=== PATIENT | female | born 1995 | race Hispanic/Latino ===

== ENCOUNTER 2016-12-13 04:47 | Observation (INO) | payer BC ==
--- NOTE | 2016-12-13 05:18 | ED PDOC ---
Arrival/HPI - General Historian: Patient - History of Present Illness Time/Duration: 4-6 hours Symptom Onset: Sudden Symptom Course: Unchanged Quality: Other (sharp) Severity Level: 8 Activities at Onset: Rest Context: Sitting <Wayne Alvarado - Last Filed: 12/13/16 07:00> <Shelley Etienne - Last Filed: 12/13/16 07:26> - General Chief Complaint: Abdominal Pain Time Seen by Provider: 12/13/16 05:08 - History of Present Illness Narrative History of Present Illness (Text): 12/13/16 05:18 This is a 21 yr. old female with no pertinent past medical history who comes to [facility] complaining of diffuse abdominal pain since 10 p.m. last night. She describes the pain as sharp in nature and it coming in waves. The patient reports taking Pepto Bismol earlier in the day with no relief. The patient reports one episode of non-bloody, non bilious vomit in conjunction with the abdominal pain. She denies any fevers, chills, constipation, diarrhea, chest pain, shortness of breath, or any other complaints. 12/13/16 06:57 (Wayne Alvarado) Past Medical History - Provider Review Nursing Documentation Reviewed: Yes - Travel History Have you recently traveled outside [place] w/in the past 3 mons?: No - Infectious Disease Hx of Infectious Diseases: None - Tetanus Immunization Tetanus Immunization: Unknown - Past Medical History Past Medical History: No Previous - Musculoskeletal/Rheumatological Hx Falls: No Other/Comment: Scoliosis - Psychiatric Hx Substance Use: No - Past Surgical History Past Surgical History: No Previous - Suicidal Assessment Feels Threatened In Home Enviroment: No <Wayne Alvarado - Last Filed: 12/13/16 07:00> Family/Social History - Physician Review Nursing Documentation Reviewed: Yes Family/Social History: No Known Family HX Smoking Status: Never Smoked Hx Alcohol Use: No Hx Substance Use: No Hx Substance Use Treatment: No <Wayne Alvarado - Last Filed: 12/13/16 07:00> Allergies/Home Meds <Wayne Alvarado - Last Filed: 12/13/16 07:00> <Shelley Etienne - Last Filed: 12/13/16 07:26> Allergies/Adverse Reactions: Allergies Penicillins Allergy (Verified 12/13/16 05:07) ANAPHYLAXIS Sulfa (Sulfonamide Antibiotics) Allergy (Verified 12/13/16 05:08) VOMITING Home Medications: Home Meds Medication Instructions Recorded Confirmed No Known Home Med 12/13/16 12/13/16 Review of Systems - Physician Review All systems were reviewed & negative as marked: Yes - Review of Systems Constitutional: Normal. absent: Fevers, Night Sweats Eyes: Normal. absent: Vision Changes, Eye Pain ENT: Normal. absent: Sore Throat, Rhinorrhea, Sinus Congestion Respiratory: Normal. absent: Sputum, Wheezing Cardiovascular: Normal. absent: Chest Pain, Syncope Gastrointestinal: Abdominal Pain (diffuse abdominal pain), Vomiting (one episdoe of non-bloody, non-billious emesis). absent: Normal, Constipation, Diarrhea Genitourinary Female: Normal. absent: Frequency, Hematuria Musculoskeletal: Normal. absent: Back Pain Skin: Normal. absent: Skin Lesions, Abscess Neurological: Normal. absent: Headache, Dizziness Endocrine: Normal. absent: Polyuria, Polydipsia Hemo/Lymphatic: Normal. absent: Easy Bleeding, Easy Bruising <Wayne Alvarado - Last Filed: 12/13/16 07:00> Physical Exam Vital Signs Reviewed: Yes Temperature: Afebrile Blood Pressure: Hypertensive Pulse: Tachycardic Respiratory Rate: Normal Appearance: Positive for: Well-Appearing, Non-Toxic, Uncomfortable Pain Distress: Moderate Mental Status: Positive for: Alert and Oriented X 3 - Systems Exam Head: Present: Atraumatic, Normocephalic Pupils: Present: PERRL. No: Non-Reactive Extroacular Muscles: Present: EOMI. No: Gaze Palsy Conjunctiva: Present: Normal. No: Injected Mouth: Present: Moist Mucous Membranes, Normal Tounge. No: Drooling Neck: Present: Normal Range of Motion. No: JVD, Lymphadenopathy Respiratory/Chest: Present: Clear to Auscultation, Good Air Exchange. No: Respiratory Distress, Accessory Muscle Use, Wheezes Cardiovascular: Present: Regular Rate and Rhythm, Normal S1, S2. No: Murmurs, Tachycardic Abdomen: Present: Tenderness (slight tenderness noted in all four quadrants), Normal Bowel Sounds. No: Distention, Rebound, Guarding Upper Extremity: Present: Normal Inspection. No: Cyanosis, Edema Lower Extremity: Present: Normal Inspection. No: Edema Neurological: Present: CN II-XII Intact, Speech Normal Skin: Present: Dry, Normal Color. No: Warm, Rashes Lymphatic: No: Cervical Adenopathy Psychiatric: Present: Alert, Oriented x 3, Normal Insight, Normal Concentration <Wayne Alvarado - Last Filed: 12/13/16 07:00> Medical Decision Making <Wayne Alvarado - Last Filed: 12/13/16 07:00> - Lab Interpretations I have reviewed the lab results: Yes <Shelley Etienne - Last Filed: 12/13/16 07:26> ED Course and Treatment: 12/13/16 05:24 This is a 21 yr. female who comes to [facility] complaining of diffuse abdominal pain. I ordered cbc w/diff, cmp, ab and pelvis ct with iv and po contrast, u/a. Patient was given Toradol, Pepcid, IV fluids and Zofran. Patient will be re-evaluated after lab results return. 12/13/16 06:55 (Wayne Alvarado) 12/13/16 05:46 In agreement with resident note, which includes further HPI details. Patient was seen and evaluated with resident, came up with plan and treatment together. 12/13/16 07:25 Patient with noted history of abd pain and previous abx-treated appendicitis; awaiting CT result; case endorsed to Dr. Cabrera. (Shelley Etienne) - Lab Interpretations Lab Results: 12/13/16 05:30 12/13/16 05:30 Lab Results 12/13/16 06:45: Urine Color Yellow, Urine Appearance Clear, Urine pH 6.5, Ur Specific [place] 1.020, Urine Protein Negative, Urine Glucose (UA) Negative, Urine Ketones 15 H, Urine Blood Negative, Urine Nitrate Negative, Urine Bilirubin Negative, Urine Urobilinogen 0.2, Ur Leukocyte Esterase Negative 12/13/16 05:30: Sodium 140, Potassium 3.9, Chloride 103, Carbon Dioxide 25, Anion Gap 16, BUN 12, Creatinine 0.6, Est GFR ( Amer) > 60, Est GFR (Non- Af Amer) > 60, Random Glucose 88, Calcium 9.5, Total Bilirubin 0.7, AST 24, ALT 36, Alkaline Phosphatase 75, Total Protein 7.6, Albumin 4.4, Globulin 3.2, Albumin/Globulin Ratio 1.3, Lipase 41 12/13/16 05:30: WBC 10.7 D, RBC 4.08, Hgb 12.7, Hct 38.6, MCV 94.6, MCH 31.1, MCHC 32.9, RDW 12.3, Plt Count 201, MPV 11.6 H, Gran % 69.9 H, Lymph % (Auto) 21.1 L, [place] % (Auto) 7.5 H, Eos % (Auto) 1.2 L, Baso % (Auto) 0.3, Gran # 7.51 H, Lymph # 2.3, [place] # 0.8 H, Eos # 0.1, Baso # 0.03 - RAD Interpretation Radiology Orders: 12/13/16 05:26 ABDOMEN & PELVIS [ABD PELVIS PO & IV CONTRAST] [CT] Stat - Medication Orders Current Medication Orders: Discontinued Medications Famotidine (Pepcid) 20 mg IVP STAT STA Stop: 12/13/16 05:40 Last Admin: 12/13/16 05:52 Dose: 20 mg Sodium Chloride (Sodium Chloride 0.9%) 1,000 mls @ 999 mls/hr IV .Q1H1M STA Stop: 12/13/16 06:38 Last Admin: 12/13/16 05:51 Dose: 999 mls/hr Iohexol (Omnipaque 240 (50 Ml)) Confirm Administered Dose 50 ml .ROUTE .STK-MED ONE Stop: 12/13/16 05:37 Iohexol (Omnipaque 350 100 Ml) Confirm Administered Dose 350 mg .ROUTE .STK-MED ONE Stop: 12/13/16 06:34 Ketorolac Tromethamine (Toradol) 30 mg IVP STAT STA Stop: 12/13/16 05:39 Last Admin: 12/13/16 05:51 Dose: 30 mg Ondansetron HCl (Zofran Inj) 4 mg IVP STAT STA Stop: 12/13/16 05:40 Last Admin: 12/13/16 05:51 Dose: 4 mg <Wayne Alvarado - Last Filed: 12/13/16 07:00> - PA / GAS DESULFURIZER / Resident Statement SCOTT has reviewed & agrees with the documentation as recorded. MD/DO has examined the patient and agrees with the treatment plan. - Scribe Statement The provider has reviewed the documentation as recorded by the Scribe <Shelley Etienne - Last Filed: 12/13/16 07:26> - Scribe Statement 12/13/2016 Idalia Sandhu Provider Scribe Attestation: All medical record entries made by the Scribe were at my direction and personally dictated by me. I have reviewed the chart and agree that the record accurately reflects my personal performance of the history, physical exam, medical decision making, and the department course for this patient. I have also personally directed, reviewed, and agree with the discharge instructions and disposition. (Shelley Etienne) Disposition/Present on Arrival - Present on Arrival Any Indicators Present on Arrival: Yes History of DVT/PE: No History of Uncontrolled Diabetes: No Urinary Catheter: No History of Decub. Ulcer: No History Surgical Site Infection Following: None - Disposition Have Diagnosis and Disposition been Completed?: No Disposition Time: 07:01 Patient Plan: Other (Sign out to another physician) <Wayne Alvarado - Last Filed: 12/13/16 07:00> <Shelley Etienne - Last Filed: 12/13/16 07:26> - Disposition Diagnosis: Abdominal pain Patient Problems: Current Active Problems Problem Status Onset Abdominal pain Acute Condition: FAIR Referrals: PCP,NO [Primary Care Provider] - Follow up with primary Forms: [employer] ([place])
[2016-12-13] MEDS ORDERED: Iohexol 240 (50 ml) ONE (05:36)
[2016-12-13] MEDS ORDERED: Sodium Chloride 0.9% 1,000 ML IV STA (05:38)
[2016-12-13 05:53] LABS: BASO # 0.03 K/mm3 (0.0-2.0); BASO % 0.3 % (0.0-3.0); EOS # 0.1 (0.0-0.7); EOS % 1.2 % (1.5-5.0); GRAN # 7.51 (1.4-6.5); GRAN % 69.9 % (50.0-68.0); HEMATOCRIT 38.6 % (36.0-48.0); LYMPH # 2.3 (1.2-3.4); LYMPH % 21.1 % (22.0-35.0); MEAN CELL VOLUME 94.6 fl (80.0-105.0); MEAN CORPUSCULAR HEMOGLOBIN 31.1 pg (25.0-35.0); MEAN CORPUSCULAR HGB CONC 32.9 g/dl (31.0-37.0); MEAN PLATELET VOLUME 11.6 fl (7.0-11.0); MONO # 0.8 (0.1-0.6); MONO % 7.5 % (1.0-6.0); RED CELL DISTRIBUTION WIDTH 12.3 % (11.5-14.5); WHITE BLOOD COUNT 10.7 10^3/ul (4.5-11.0)
[2016-12-13 05:57] LABS: ALB/GLOB RATIO 1.3 (1.1-1.8); ALKALINE PHOSPHATASE 75 U/L (38-133); ALT/SGPT 36 U/L (7-56); AST/SGOT 24 U/L (15-39); BILIRUBIN,TOTAL 0.7 mg/dL (0.2-1.3); BLOOD UREA NITROGEN 12 mg/dL (7-21); CALCIUM 9.5 mg/dL (8.4-10.5); CARBON DIOXIDE 25 mmol/L (21-33); CHLORIDE 103 mmol/L (95-110); GFR AFRICAN-AMERICAN > 60; GLUCOSE,RANDOM 88 mg/dL (70-110); LIPASE 41 U/L (23-300); POTASSIUM 3.9 mmol/L (3.6-5.0); SODIUM 140 mmol/L (132-148); TOTAL PROTEIN 7.6 g/dL (5.8-8.3)
[2016-12-13] MEDS ORDERED: Iohexol 350 MG/100 ML VIAL ONE (06:33)
--- NOTE | 2016-12-13 07:11 | ED PDOC ---
Physical Exam Vital Signs Reviewed: Yes Vital Signs Temp Pulse Resp BP Pulse Ox 12/13/16 09:14 83 18 120/63 96 12/13/16 07:31 97.9 F 69 16 125/75 97 12/13/16 05:04 98.3 F 92 H 18 140/96 H 100 Temperature: Afebrile Blood Pressure: Hypertensive Pulse: Regular Respiratory Rate: Normal Appearance: Positive for: Well-Appearing Pain Distress: Mild Mental Status: Positive for: Alert and Oriented X 3 Medical Decision Making ED Course and Treatment: 12/13/16 07:00 Patient signed out to me by Dr. Etienne. Patient complaining of Abdominal pain, pending CT results and disposition. Patient appears comfortable and is in no distress. Abdomen is soft and non- tender. 12/13/16 09:27 CT Abdomen and Pelvis with contrast: Dictator : Francisco Leonard MD FINDINGS: LOWER THORAX:Unremarkable. LIVER:Unremarkable. No gross lesion or ductal dilatation. GALLBLADDER AND BILE DUCTS:Unremarkable. PANCREAS:Unremarkable. No gross lesion or ductal dilatation. SPLEEN:Unremarkable. ADRENALS:Unremarkable. No mass. KIDNEYS AND URETERS:Unremarkable. No hydronephrosis. No solid mass. VASCULATURE:Unremarkable. No aortic aneurysm. BOWEL:Unremarkable. No obstruction. No gross mural thickening. APPENDIX:The appendix is difficult to visualize due to lack of abdominal fat. Oral contrast does not reach the cecum. There is also himf-ij-muppqkts constipation. There are no secondary signs of appendicitis. PERITONEUM:There is a small amount of free fluid in the pelvis and the right pericolic gutter. LYMPH NODES:Unremarkable. No enlarged lymph nodes. BLADDER:Unremarkable. REPRODUCTIVE:There is a thick-walled collapsed cyst in the right ovary consistent with recent cyst rupture BONES:No acute fracture. OTHER FINDINGS:None. IMPRESSION: The appendix is difficult to visualize due to lack of abdominal fat. Oral contrast does not reach the cecum. There is also cbaw-aa-rjyfuboc constipation. There are no secondary signs of appendicitis. Thick-walled collapsed cyst in the right ovary and fluid in the pelvis and right pericolic gutter consistent with recent cyst rupture 12/13/16 09:33 pt states she is still in pain, does not feel comfortable being dc'd home states she has no PMD hospitalist paged, awaiting callback 12/13/16 09:[address] Carey, accepted obs to his service pt aware of and agrees with plan - Lab Interpretations Lab Results: 12/13/16 05:30 12/13/16 05:30 Lab Results 12/13/16 06:45: Urine Color Yellow, Urine Appearance Clear, Urine pH 6.5, Ur Specific [place] 1.020, Urine Protein Negative, Urine Glucose (UA) Negative, Urine Ketones 15 H, Urine Blood Negative, Urine Nitrate Negative, Urine Bilirubin Negative, Urine Urobilinogen 0.2, Ur Leukocyte Esterase Negative 12/13/16 05:30: Sodium 140, Potassium 3.9, Chloride 103, Carbon Dioxide 25, Anion Gap 16, BUN 12, Creatinine 0.6, Est GFR ( Amer) > 60, Est GFR (Non- Af Amer) > 60, Random Glucose 88, Calcium 9.5, Total Bilirubin 0.7, AST 24, ALT 36, Alkaline Phosphatase 75, Total Protein 7.6, Albumin 4.4, Globulin 3.2, Albumin/Globulin Ratio 1.3, Lipase 41 12/13/16 05:30: WBC 10.7 D, RBC 4.08, Hgb 12.7, Hct 38.6, MCV 94.6, MCH 31.1, MCHC 32.9, RDW 12.3, Plt Count 201, MPV 11.6 H, Gran % 69.9 H, Lymph % (Auto) 21.1 L, [place] % (Auto) 7.5 H, Eos % (Auto) 1.2 L, Baso % (Auto) 0.3, Gran # 7.51 H, Lymph # 2.3, [place] # 0.8 H, Eos # 0.1, Baso # 0.03 I have reviewed the lab results: Yes - RAD Interpretation Radiology Orders: 12/13/16 05:26 ABDOMEN & PELVIS [ABD PELVIS PO & IV CONTRAST] [CT] Stat - Medication Orders Current Medication Orders: Morphine Sulfate (Morphine) 4 mg IVP STAT STA Stop: 12/13/16 09:38 Discontinued Medications Famotidine (Pepcid) 20 mg IVP STAT STA Stop: 12/13/16 05:40 Last Admin: 12/13/16 05:52 Dose: 20 mg Sodium Chloride (Sodium Chloride 0.9%) 1,000 mls @ 999 mls/hr IV .Q1H1M STA Stop: 12/13/16 06:38 Last Admin: 12/13/16 05:51 Dose: 999 mls/hr Iohexol (Omnipaque 240 (50 Ml)) Confirm Administered Dose 50 ml .ROUTE .STK-MED ONE Stop: 12/13/16 05:37 Iohexol (Omnipaque 350 100 Ml) Confirm Administered Dose 350 mg .ROUTE .STK-MED ONE Stop: 12/13/16 06:34 Ketorolac Tromethamine (Toradol) 30 mg IVP STAT STA Stop: 12/13/16 05:39 Last Admin: 12/13/16 05:51 Dose: 30 mg Ketorolac Tromethamine (Toradol) 15 mg IVP STAT STA Stop: 12/13/16 08:22 Last Admin: 12/13/16 08:33 Dose: 15 mg Ondansetron HCl (Zofran Inj) 4 mg IVP STAT STA Stop: 12/13/16 05:40 Last Admin: 12/13/16 05:51 Dose: 4 mg - Scribe Statement The provider has reviewed the documentation as recorded by the Royer Sherman Provider Scribe Attestation: All medical record entries made by the Royer were at my direction and personally dictated by me. I have reviewed the chart and agree that the record accurately reflects my personal performance of the history, physical exam, medical decision making, and the department course for this patient. I have also personally directed, reviewed, and agree with the discharge instructions and disposition. Disposition/Present on Arrival - Present on Arrival Any Indicators Present on Arrival: No History of DVT/PE: No History of Uncontrolled Diabetes: No Urinary Catheter: No History of Decub. Ulcer: No History Surgical Site Infection Following: None - Disposition Have Diagnosis and Disposition been Completed?: Yes Diagnosis: Abdominal pain Disposition: HOSPITALIZED Disposition Time: 09:38 Patient Plan: Observation Patient Problems: Current Active Problems Problem Status Onset Abdominal pain Acute Condition: FAIR Referrals: PCP,NO [Primary Care Provider] - Follow up with primary Forms: [employer] (Serbian)
[2016-12-13 07:12] LABS: PH,URINE 6.5 (4.7-8.0); URINE BILIRUBIN NEGATIVE (NEGATIVE); URINE BLOOD NEGATIVE (NEGATIVE); URINE GLUCOSE (UA) NEGATIVE (NEGATIVE); URINE KETONE 15 mg/dL (NEGATIVE); URINE LEUKOCYTE ESTERASE NEGATIVE Leu/uL (NEGATIVE); URINE PROTEIN NEGATIVE mg/dL (<30 mg/dL); URINE UROBILINOGEN 0.2 E.U./dL (<1 E.U./dL)
[2016-12-13 07:22] LABS: URINE APPEARANCE CLEAR (CLEAR); URINE COLOR YELLOW (YELLOW)
[2016-12-13 09:15] VITALS: RESP 18
--- NOTE | 2016-12-13 09:22 | CT ---
PROCEDURE: CT Abdomen and Pelvis with contrast HISTORY: diffuse abdominal pain COMPARISON: 11/11/2014 CT TECHNIQUE: Contrast dose: 100 cc of Omni 350 Radiation dose: Total exam DLP = 312 mGy-cm. This CT exam was performed using one or more of the following dose reduction techniques: Automated exposure control, adjustment of the mA and/or kV according to patient size, and/or use of iterative reconstruction technique. FINDINGS: LOWER THORAX: Unremarkable. LIVER: Unremarkable. No gross lesion or ductal dilatation. GALLBLADDER AND BILE DUCTS: Unremarkable. PANCREAS: Unremarkable. No gross lesion or ductal dilatation. SPLEEN: Unremarkable. ADRENALS: Unremarkable. No mass. KIDNEYS AND URETERS: Unremarkable. No hydronephrosis. No solid mass. VASCULATURE: Unremarkable. No aortic aneurysm. BOWEL: Unremarkable. No obstruction. No gross mural thickening. APPENDIX: The appendix is difficult to visualize due to lack of abdominal fat. Oral contrast does not reach the cecum. There is also vzuk-dm-jdkbalkd constipation. There are no secondary signs of appendicitis. PERITONEUM: There is a small amount of free fluid in the pelvis and the right pericolic gutter. LYMPH NODES: Unremarkable. No enlarged lymph nodes. BLADDER: Unremarkable. REPRODUCTIVE: There is a thick-walled collapsed cyst in the right ovary consistent with recent cyst rupture BONES: No acute fracture. OTHER FINDINGS: None. IMPRESSION: The appendix is difficult to visualize due to lack of abdominal fat. Oral contrast does not reach the cecum. There is also dvng-ch-temklodk constipation. There are no secondary signs of appendicitis. Thick-walled collapsed cyst in the right ovary and fluid in the pelvis and right pericolic gutter consistent with recent cyst rupture
[2016-12-13] MEDS ORDERED: Morphine 4 mg/ml ISec IVP STA (09:37)
[2016-12-13] MEDS ORDERED: Pantoprazole 20 mg EC Tab PO ONE (12:07)
[2016-12-13] MEDS ORDERED: Sodium Chloride 0.9% 1,000 ML IV SCH (12:15)
[2016-12-13 12:56] VITALS: BMI 22.4
[2016-12-13] MEDS ORDERED: Pneumococcal 23-Valent Vaccine IM ONE (12:56)
--- NOTE | 2016-12-13 14:04 | CP.PCM.HP ---
<HildaCodi - Last Filed: 12/13/16 14:00> History of Present Illness - History of Present Illness History of Present Illness: History and Physical for Dr. Carey Pt is a 21 year old female who reports diffuse abdominal pain that began last night, that initially felt like heartburn, but around 22:00, pain began to feel worse. Patient states that the pain has been intermittent, and last night, she also had nausea and 1 episode of vomiting (containing contents of dinner). She denies exacerbating or relieving factors, and last night attempted to take a Pepto Bismol, but she threw it up right away. Last meal was at 18:00 yesterday. Patient was subsequently taken to the ED by her mother, where she had another episode of vomiting. She was given IVF, IV Zofran, Pepcid, Toradol, and Morphine with some relief of symptoms, had labs drawn, UHCG negative, and an abdominal CT with PO & IV contrast, which showed nonvisualization of the appendix, mild constipation, and a ruptured R ovarian cyst. Pt denies nausea now, but is still complaining of abdominal pain which is localized to the RLQ and suprapubic region, and is currently rated 7/10. She states that she currently feels hungry. Last BM was yesterday, which was normal. Denies constipation, urinary symptoms, or vaginal discharge. Of note, patient was admitted to [facility] in October of 2014 for complaints of lower abdominal pain, with a CT showing possible early appendicitis, but was discharged on Cipro with no surgical intervention when symptoms improved. She had a transvaginal and pelvic US earlier that year (April 2014) which were both unremarkable. OBGYN: Dr. Ayoub OBGYN History: LMP: 11/18/16. . Patient is sexually active, last intercourse was 1 month ago. She usually uses condoms. Denies OCP. Patient sees Dr. Ayoub regularly, last saw him less than 1 year ago. PMH: Denies DM, HTN, anemia PSH: Denies Meds: None Allergies: PCN, Sulfa (unsure of rxn, last taken as a baby) Family hx: DM, HTN, colitis Social hx: - Denies smoking - Social EtOH - Denies recreational drugs - Lives with mother - Exercises regularly - did squats and glut bridges yesterday - Usually has a good appetite ROS: General: Denies fever or chills HEENT: Denies cough or recent cold symptoms CV: Denies chest pain Respiratory: Denies SOB Abdomen: (+) abdominal pain, (+) nausea, (+) vomiting. Denies diarrhea. (+) H/ O constipation, last BM was yesterday, but was small. : Denies hematuria or dysuria. Plastic Printer: Pt states that her menstrual cramps have been more severe for the past 5 cycles. MSK: Denies back pain. Denies extremity pain. Neuro: Denies headache or light headedness. Present on Admission - Present on Admission Any Indicators Present on Admission: No History of DVT/PE: No History of Uncontrolled Diabetes: No Urinary Catheter: No Decubitus Ulcer Present: No Past Patient History - Infectious Disease Hx of Infectious Diseases: None - Tetanus Immunizations Tetanus Immunization: Unknown - Past Social History Smoking Status: Never Smoked - MUSCULOSKELETAL/RHEUMATOLOGICAL Hx Musculoskeletal Disorders: Yes (scoliosis) Hx Falls: No Other/Comment: Scoliosis - PSYCHIATRIC Hx Substance Use: No - SURGICAL HISTORY Other/Comment: adenoids removed when pt was in 7th grade Meds Allergies/Adverse Reactions: Allergies Allergy/AdvReac Type Severity Reaction Status Date / Time Penicillins Allergy ANAPHYLAXIS Verified 12/13/16 05:07 Sulfa (Sulfonamide Allergy VOMITING Verified 12/13/16 05:08 Antibiotics) Physical Exam - Constitutional Appears: Non-toxic, No Acute Distress - Head Exam Head Exam: NORMAL INSPECTION - Eye Exam Eye Exam: EOMI, Normal appearance - ENT Exam ENT Exam: Mucous Membranes Moist - Neck Exam Neck exam: Positive for: Full Rom, Normal Inspection - Respiratory Exam Respiratory Exam: NORMAL BREATHING PATTERN. absent: Accessory Muscle Use, Respiratory Distress - Cardiovascular Exam Cardiovascular Exam: REGULAR RHYTHM. absent: Bradycardia, Tachycardia - GI/Abdominal Exam GI & Abdominal Exam: Guarding, Normal Bowel Sounds, Tenderness. absent: Distended, Rebound Additional comments: no rebound tenderness. negative rovsing. pain on palpation to RLQ pain. - Extremities Exam Extremities exam: Positive for: full ROM, normal inspection. Negative for: joint swelling, pedal edema, tenderness - Back Exam Back exam: NORMAL INSPECTION. absent: CVA tenderness (L), CVA tenderness (R) - Neurological Exam Neurological exam: Alert, CN II-XII Intact, Normal Gait, Oriented x3 - Psychiatric Exam Psychiatric exam: Normal Affect, Normal Mood - Skin Skin Exam: Dry, Normal Color Results - Vital Signs Recent Vital Signs: Last Vital Signs Temp 97.9 F 12/13/16 12:46 Pulse 83 12/13/16 12:46 Resp 18 12/13/16 12:46 BP 120/63 12/13/16 12:46 Pulse Ox 96 12/13/16 09:14 - Labs Result Diagrams: 12/13/16 05:30 12/13/16 05:30 Assessment & Plan - Assessment and Plan (Free Text) Assessment: 21F with right lower quadrant and left lower quadrant abdominal pain with one episode of vomiting. No past medical history Plan: Assessment and Plan: 1. RLQ abdominal pain, ruptured ovarian cyst on CT - IV fluids - Pain control (IV Toradol 30 Q6H PRN) - NPO, advance to liquid diet if stable - monitor vitals - consider surgical consult, r/o appendicitis - follow up with OBGYN as outpatient - Protonix for GI prophylaxis 2. Nausea, vomiting, resolved - Zofran PRN - Date & Time Date: 12/13/16 Time: 14:07 <Nino Carey - Last Filed: 12/13/16 15:15> Results - Vital Signs Recent Vital Signs: Last Vital Signs Temp 97.9 F 12/13/16 12:46 Pulse 83 12/13/16 12:46 Resp 18 12/13/16 12:46 BP 120/63 12/13/16 12:46 Pulse Ox 96 12/13/16 09:14 - Labs Result Diagrams: 12/13/16 05:30 12/13/16 05:30 Attending/Attestation - Attestation I have personally seen and examined this patient.: Yes I have fully participated in the care of the patient.: Yes I have reviewed all pertinent clinical information: Yes Notes (Text): 12/13/16 15:10 21 year old female who presents with lower abdomen / right lower abdominal pain with nausea/vomiting. CT abd/pelvis shows difficult to visualize appendix, however no secondary signs of appendicitis. Also shows signs of recent right ovarian cyst rupture which can explain her pain. She reports her abdominal pain is better at this time. Denies any nausea or vomiting since this morning. Will continue with iv fluids and toradol prn for pain. Labs including UA are negative. Will advance diet to liquids and advance as tolertated. Continue with zofran prn and protoinx. Patient will need outpatient gynecology follow up. Mother is at bedside and questions were answered. Nino Carey MD Hospitalist.
[2016-12-13 18:39] VITALS: TEMP 98.3
[2016-12-14] MEDS ORDERED: Pantoprazole 20 mg EC Tab PO SCH (06:00)
[2016-12-14 07:33] LABS: BASO # 0.02 K/mm3 (0.0-2.0); BASO % 0.3 % (0.0-3.0); EOS # 0.2 (0.0-0.7); EOS % 2.2 % (1.5-5.0); GRAN # 4.91 (1.4-6.5); GRAN % 63.8 % (50.0-68.0); LYMPH # 1.8 (1.2-3.4); LYMPH % 23.2 % (22.0-35.0); MEAN CELL VOLUME 96.2 fl (80.0-105.0); MEAN CORPUSCULAR HEMOGLOBIN 30.8 pg (25.0-35.0); MEAN PLATELET VOLUME 11.6 fl (7.0-11.0); MONO # 0.8 (0.1-0.6); MONO % 10.5 % (1.0-6.0); RED CELL DISTRIBUTION WIDTH 12.4 % (11.5-14.5); WHITE BLOOD COUNT 7.7 10^3/ul (4.5-11.0)
[2016-12-14 08:21] VITALS: BP 100/57; PULSE 75; O2SAT 97
[2016-12-14 08:24] LABS: ALB/GLOB RATIO 1.3 (1.1-1.8); ALKALINE PHOSPHATASE 63 U/L (38-133); ALT/SGPT 30 U/L (7-56); AST/SGOT 31 U/L (15-39); BILIRUBIN,TOTAL 0.7 mg/dL (0.2-1.3); BLOOD UREA NITROGEN 6 mg/dL (7-21); CALCIUM 8.8 mg/dL (8.4-10.5); CARBON DIOXIDE 27 mmol/L (21-33); CHLORIDE 106 mmol/L (98-107); GFR AFRICAN-AMERICAN > 60; GLUCOSE,RANDOM 76 mg/dL (70-110); POTASSIUM 4.1 mmol/L (3.6-5.0); SODIUM 141 mmol/L (132-148); TOTAL PROTEIN 6.2 g/dL (5.8-8.3)
--- NOTE | 2016-12-14 11:24 | CP.PCM.DIS ---
Addendum entered and electronically signed by Codi Stevens DO 12/14/16 16:23: Patient tolerated her diet, tolerated pain, discharge instructions were given. Patient was discharged home. Original Note: <Codi Stevens - Last Filed: 12/14/16 16:22> Provider - Provider Date of Admission: 12/13/16 09:40 Attending physician: Nino Carey MD Primary care physician: NO PRIMARY CARE PROVIDER Time Spent in preparation of Discharge (in minutes): 35 Diagnosis - Discharge Diagnosis (1) Ruptured ovarian cyst Status: Acute Comment: resolving symptoms of pain. resolved symptoms of nausea, vomiting Hospital Course - Lab Results Lab Results: Most Recent Lab Values WBC 7.7 10^3/ul (4.5-11.0) D 12/14/16 07:00 RBC 3.64 10^6/uL (3.5-6.1) 12/14/16 07:00 Hgb 11.2 g/dL (12.0-16.0) L 12/14/16 07:00 Hct 35.0 % (36.0-48.0) L 12/14/16 07:00 MCV 96.2 fl (80.0-105.0) 12/14/16 07:00 MCH 30.8 pg (25.0-35.0) 12/14/16 07:00 MCHC 32.0 g/dl (31.0-37.0) 12/14/16 07:00 RDW 12.4 % (11.5-14.5) 12/14/16 07:00 Plt Count 151 10^3/uL (120.0-450.0) 12/14/16 07:00 MPV 11.6 fl (7.0-11.0) H 12/14/16 07:00 Gran % 63.8 % (50.0-68.0) 12/14/16 07:00 Lymph % (Auto) 23.2 % (22.0-35.0) 12/14/16 07:00 Gilliam % (Auto) 10.5 % (1.0-6.0) H 12/14/16 07:00 Eos % (Auto) 2.2 % (1.5-5.0) 12/14/16 07:00 Baso % (Auto) 0.3 % (0.0-3.0) 12/14/16 07:00 Gran # 4.91 (1.4-6.5) 12/14/16 07:00 Lymph # 1.8 (1.2-3.4) 12/14/16 07:00 Gilliam # 0.8 (0.1-0.6) H 12/14/16 07:00 Eos # 0.2 (0.0-0.7) 12/14/16 07:00 Baso # 0.02 K/mm3 (0.0-2.0) 12/14/16 07:00 Sodium 141 mmol/L (132-148) 12/14/16 07:30 Potassium 4.1 mmol/L (3.6-5.0) 12/14/16 07:30 Chloride 106 mmol/L (98-107) 12/14/16 07:30 Carbon Dioxide 27 mmol/L (21-33) 12/14/16 07:30 Anion Gap 12 (10-20) 12/14/16 07:30 BUN 6 mg/dL (7-21) L 12/14/16 07:30 Creatinine 0.6 mg/dL (0.5-1.4) 12/14/16 07:30 Est GFR ( Amer) > 60 12/14/16 07:30 Est GFR (Non-Af Amer) > 60 12/14/16 07:30 Random Glucose 76 mg/dL (70-110) 12/14/16 07:30 Calcium 8.8 mg/dL (8.4-10.5) 12/14/16 07:30 Total Bilirubin 0.7 mg/dL (0.2-1.3) 12/14/16 07:30 AST 31 U/L (15-39) 12/14/16 07:30 ALT 30 U/L (7-56) 12/14/16 07:30 Alkaline Phosphatase 63 U/L (38-133) 12/14/16 07:30 Total Protein 6.2 g/dL (5.8-8.3) 12/14/16 07:30 Albumin 3.5 g/dL (3.0-4.8) 12/14/16 07:30 Globulin 2.7 gm/dL 12/14/16 07:30 Albumin/Globulin Ratio 1.3 (1.1-1.8) 12/14/16 07:30 Lipase 41 U/L (23-300) 12/13/16 05:30 Urine Color Yellow (YELLOW) 12/13/16 06:45 Urine Appearance Clear (CLEAR) 12/13/16 06:45 Urine pH 6.5 (4.7-8.0) 12/13/16 06:45 Ur Specific [place] 1.020 (1.005-1.035) 12/13/16 06:45 Urine Protein Negative mg/dL (<30 mg/dL) 12/13/16 06:45 Urine Glucose (UA) Negative mg/dL (NEGATIVE) 12/13/16 06:45 Urine Ketones 15 mg/dL (NEGATIVE) H 12/13/16 06:45 Urine Blood Negative (NEGATIVE) 12/13/16 06:45 Urine Nitrate Negative (NEGATIVE) 12/13/16 06:45 Urine Bilirubin Negative (NEGATIVE) 12/13/16 06:45 Urine Urobilinogen 0.2 E.U./dL (<1 E.U./dL) 12/13/16 06:45 Ur Leukocyte Esterase Negative Ronnie/uL (NEGATIVE) 12/13/16 06:45 - Hospital Course Hospital Course: Discharge Summary for Dr. Carey Pt is a 21 year old female diffuse abdominal pain that started overnight. Pain initially presented as heartburn. Pain increased in intensity around 22:00, pain began to feel worse. Patient states that the pain has been intermittent. Patient admitted to vomiting x 1 episode and nausea. Patient was brought to the ED by mother and had a second episode of emesis. She was given IVF, IV Zofran, Pepcid, Toradol, and Morphine with some relief of symptoms, had labs drawn, UHCG negative, and an abdominal CT with PO & IV contrast, which showed nonvisualization of the appendix, mild constipation, and a ruptured R ovarian cyst. Patient seen at bedside today. Patient had periumbilical pain that radiated to mid-epigastric region. Relieved with Toradol 30mg. Pt denies nausea now. Patient admits to hunger, RLQ abdominal pain. She states that she currently feels hungry. f/u with OBGYN: Dr. Ayoub limit strenuous activities until symptoms resolve - Date & Time of H&P Date of H&P: 12/14/16 Time of H&P: 11:37 Discharge Exam - Head Exam Head Exam: NORMAL INSPECTION - Eye Exam Eye Exam: EOMI, Normal appearance - ENT Exam ENT Exam: Mucous Membranes Moist - Cardiovascular Exam Cardiovascular Exam: REGULAR RHYTHM. absent: Bradycardia, Tachycardia - GI/Abdominal Exam GI & Abdominal Exam: Guarding, Hypoactive Bowel Sounds, Soft, Tenderness. absent: Rebound Additional comments: RLQ tenderness to palpation negative rovsing no rebound tenderness. - Neurological Exam Neurological exam: Alert, Normal Gait, Oriented x3 - Psychiatric Exam Psychiatric exam: Normal Affect, Normal Mood - Skin Skin Exam: Dry, Intact, Normal Color, Warm Discharge Plan - Discharge Medications Prescriptions: Ibuprofen [Motrin Tab] 400 mg PO Q6H PRN #28 tab PRN Reason: Pain, Moderate (4-7) Ondansetron [Zofran Inj] 4 mg PO Q6 PRN #7 vial PRN Reason: Nausea/Vomiting Ondansetron [Zofran] 4 mg PO Q8H PRN #21 tab PRN Reason: Nausea/Vomiting - Follow Up Plan Condition: FAIR Disposition: HOME/ ROUTINE Patient education suggested?: Yes Instructions: Ovarian Cyst (DC), Acute Abdominal Pain (DC), Acute Abdominal Pain (GEN), How To Wash Your Hands (DC), Fall Prevention (DC) Additional Instructions: Follow up with OBGYN within one week Try not to do strenuous activities for a week. Return to Emergency room if symptoms worsen, abdominal pain returns or increases in severity, nausea and vomiting Referrals: PCP,NO [Primary Care Provider] - <Nino Carey - Last Filed: 12/14/16 16:51> Provider - Provider Date of Admission: 12/13/16 09:40 Attending physician: Nino Carey MD Primary care physician: NO PRIMARY CARE PROVIDER Hospital Course - Lab Results Lab Results: Most Recent Lab Values WBC 7.7 10^3/ul (4.5-11.0) D 12/14/16 07:00 RBC 3.64 10^6/uL (3.5-6.1) 12/14/16 07:00 Hgb 11.2 g/dL (12.0-16.0) L 12/14/16 07:00 Hct 35.0 % (36.0-48.0) L 12/14/16 07:00 MCV 96.2 fl (80.0-105.0) 12/14/16 07:00 MCH 30.8 pg (25.0-35.0) 12/14/16 07:00 MCHC 32.0 g/dl (31.0-37.0) 12/14/16 07:00 RDW 12.4 % (11.5-14.5) 12/14/16 07:00 Plt Count 151 10^3/uL (120.0-450.0) 12/14/16 07:00 MPV 11.6 fl (7.0-11.0) H 12/14/16 07:00 Gran % 63.8 % (50.0-68.0) 12/14/16 07:00 Lymph % (Auto) 23.2 % (22.0-35.0) 12/14/16 07:00 Gilliam % (Auto) 10.5 % (1.0-6.0) H 12/14/16 07:00 Eos % (Auto) 2.2 % (1.5-5.0) 12/14/16 07:00 Baso % (Auto) 0.3 % (0.0-3.0) 12/14/16 07:00 Gran # 4.91 (1.4-6.5) 12/14/16 07:00 Lymph # 1.8 (1.2-3.4) 12/14/16 07:00 Gilliam # 0.8 (0.1-0.6) H 12/14/16 07:00 Eos # 0.2 (0.0-0.7) 12/14/16 07:00 Baso # 0.02 K/mm3 (0.0-2.0) 12/14/16 07:00 Sodium 141 mmol/L (132-148) 12/14/16 07:30 Potassium 4.1 mmol/L (3.6-5.0) 12/14/16 07:30 Chloride 106 mmol/L (98-107) 12/14/16 07:30 Carbon Dioxide 27 mmol/L (21-33) 12/14/16 07:30 Anion Gap 12 (10-20) 12/14/16 07:30 BUN 6 mg/dL (7-21) L 12/14/16 07:30 Creatinine 0.6 mg/dL (0.5-1.4) 12/14/16 07:30 Est GFR ( Amer) > 60 12/14/16 07:30 Est GFR (Non-Af Amer) > 60 12/14/16 07:30 Random Glucose 76 mg/dL (70-110) 12/14/16 07:30 Calcium 8.8 mg/dL (8.4-10.5) 12/14/16 07:30 Total Bilirubin 0.7 mg/dL (0.2-1.3) 12/14/16 07:30 AST 31 U/L (15-39) 12/14/16 07:30 ALT 30 U/L (7-56) 12/14/16 07:30 Alkaline Phosphatase 63 U/L (38-133) 12/14/16 07:30 Total Protein 6.2 g/dL (5.8-8.3) 12/14/16 07:30 Albumin 3.5 g/dL (3.0-4.8) 12/14/16 07:30 Globulin 2.7 gm/dL 12/14/16 07:30 Albumin/Globulin Ratio 1.3 (1.1-1.8) 12/14/16 07:30 Lipase 41 U/L (23-300) 12/13/16 05:30 Urine Color Yellow (YELLOW) 12/13/16 06:45 Urine Appearance Clear (CLEAR) 12/13/16 06:45 Urine pH 6.5 (4.7-8.0) 12/13/16 06:45 Ur Specific [place] 1.020 (1.005-1.035) 12/13/16 06:45 Urine Protein Negative mg/dL (<30 mg/dL) 12/13/16 06:45 Urine Glucose (UA) Negative mg/dL (NEGATIVE) 12/13/16 06:45 Urine Ketones 15 mg/dL (NEGATIVE) H 12/13/16 06:45 Urine Blood Negative (NEGATIVE) 12/13/16 06:45 Urine Nitrate Negative (NEGATIVE) 12/13/16 06:45 Urine Bilirubin Negative (NEGATIVE) 12/13/16 06:45 Urine Urobilinogen 0.2 E.U./dL (<1 E.U./dL) 12/13/16 06:45 Ur Leukocyte Esterase Negative Ronnie/uL (NEGATIVE) 12/13/16 06:45 Attending/Attestation - Attestation I have personally seen and examined this patient.: Yes I have fully participated in the care of the patient.: Yes I have reviewed all pertinent clinical information, including history, physical exam and plan: Yes Notes (Text): 12/14/16 16:48 21 year old female who presented with lower abdomen / right lower abdominal pain with nausea/vomiting. CT abd/pelvis showed difficult to visualize appendix , however no secondary signs of appendicitis; signs of recent right ovarian cyst rupture. She was started on fluids, zofran prn and toradol. Her symptoms improved and her diet was advance. Today she reports she feels much better. Denies any nausea or vomiting. Abdominal pain is better as well. Patient will be discharged home to follow up with her pmd. Strongly encouraged to follow up with auto transmission technician. Can takes NSAIDs prn for pain and colace for constipation. Aurelio Oneill MD Hospitalist.
== END 2016-12-14 17:23 | disposition home or self-care (01) ==
LOC: ED 04:47 → ERH 09:40 → 5RNO 10:36
PROVIDERS: ADMIT Internal Medicine; ATTEND Internal Medicine
DX: N83.201 Unspecified ovarian cyst, right side (principal); R11.2 Nausea with vomiting, unspecified; Z88.0 Allergy status to penicillin; Z88.2 Allergy status to sulfonamides
CPT/HCPCS: 36415; 74177; 80053; 81003; 83690; 85025; 96374; 96375; 96376; 99285; G0378; J1885; J2270; J2405; J7040; Q9966; Q9967

== ENCOUNTER 2017-12-29 12:46 | Emergency (ER) | payer BC ==
[2017-12-29 12:46] VITALS: BMI 22.4
[2017-12-29 12:59] VITALS: RESP 18; TEMP 98.1
[2017-12-29 13:40] VITALS: O2SAT 100
[2017-12-29] MEDS ORDERED: Sodium Chloride 0.9% 1,000 ML IV STA (14:21)
[2017-12-29 15:24] LABS: BASO # 0.03 K/mm3 (0.0-2.0); BASO % 0.4 % (0.0-3.0); EOS # 0.1 (0.0-0.7); EOS % 1.7 % (1.5-5.0); GRAN # 4.18 (1.4-6.5); GRAN % 60.6 % (50.0-68.0); HEMOGLOBIN 11.9 g/dL (12.0-16.0); LYMPH # 2.3 (1.2-3.4); LYMPH % 32.7 % (22.0-35.0); MEAN CELL VOLUME 94.4 fl (80.0-105.0); MEAN CORPUSCULAR HEMOGLOBIN 30.3 pg (25.0-35.0); MEAN CORPUSCULAR HGB CONC 32.1 g/dl (31.0-37.0); MEAN PLATELET VOLUME 11.5 fl (7.0-11.0); MONO # 0.3 (0.1-0.6); MONO % 4.6 % (1.0-6.0); RBC 3.93 10^6/uL (3.5-6.1); RED CELL DISTRIBUTION WIDTH 11.9 % (11.5-14.5); WHITE BLOOD COUNT 6.9 10^3/ul (4.5-11.0)
[2017-12-29 15:31] LABS: PH,URINE 7.5 (4.7-8.0); URINE BILIRUBIN NEGATIVE (NEGATIVE); URINE BLOOD NEGATIVE (NEGATIVE); URINE GLUCOSE (UA) NEGATIVE (NEGATIVE); URINE LEUKOCYTE ESTERASE NEGATIVE Leu/uL (NEGATIVE); URINE PROTEIN NEGATIVE mg/dL (<30 mg/dL); URINE UROBILINOGEN 0.2 E.U./dL (<1 E.U./dL)
[2017-12-29 15:32] LABS: ALB/GLOB RATIO 1.3 (1.1-1.8); ALT/SGPT 40 U/L (7-56); AST/SGOT 30 U/L (14-36); BLOOD UREA NITROGEN 9 mg/dL (7-21); CALCIUM 9.1 mg/dL (8.4-10.5); GFR NON-AFRICAN AMERICAN > 60; LIPASE 39 U/L (23-300)
[2017-12-29 16:47] LABS: URINE APPEARANCE CLEAR (CLEAR); URINE COLOR YELLOW (YELLOW)
[2017-12-29] MEDS ORDERED: Iohexol 350 MG/100 ML VIAL ONE (17:09)
--- NOTE | 2017-12-29 17:59 | CT ---
Date of service: 12/29/2017 PROCEDURE: CT Abdomen and Pelvis with contrast HISTORY: abd pain COMPARISON: CT abdomen and pelvis with contrast performed 12/13/16 TECHNIQUE: Contrast dose: 100 mL Omnipaque 350 Radiation dose: Total exam DLP = 308.88 mGy-cm. This CT exam was performed using one or more of the following dose reduction techniques: Automated exposure control, adjustment of the mA and/or kV according to patient size, and/or use of iterative reconstruction technique. FINDINGS: LOWER THORAX: No visible consolidation, pleural effusion, or pneumothorax. LIVER: Several too small to characterize hepatic hypodensities at the hepatic dome which are too small to characterize ; statistically likely cyst or hemangiomas. GALLBLADDER AND BILE DUCTS: Unremarkable. PANCREAS: Unremarkable. SPLEEN: Unremarkable. ADRENALS: Unremarkable. KIDNEYS AND URETERS: The kidneys enhance symmetrically. No hydronephrosis or obstructing calculus identified. VASCULATURE: No aortic aneurysm. BOWEL: Stomach is nondistended. Lack of oral contrast limits evaluation for bowel pathology. Bowel loops appear within normal limits of caliber without evidence of obstruction. APPENDIX: Limited visualization of the presumed appendix appears within normal limits of caliber. No secondary signs of acute appendicitis. PERITONEUM: No significant free fluid. No definite free air. LYMPH NODES: No bulky adenopathy identified. BLADDER: Unremarkable. REPRODUCTIVE: The uterus is present. Bilateral cystic lesions within the pelvis superior to reflect ovarian cysts. BONES: No acute osseous abnormality is detected. OTHER FINDINGS: None. IMPRESSION: Several too small to characterize hepatic hypodensities at the hepatic dome which are too small to characterize ; statistically likely cyst or hemangiomas. Bilateral cystic lesions within the pelvis superior to reflect ovarian cysts. Recommend further evaluation with pelvic ultrasound.
--- NOTE | 2017-12-29 18:01 | ED PDOC ---
Arrival/HPI - General Chief Complaint: Abdominal Pain Time Seen by Provider: 12/29/17 14:16 Historian: Patient - History of Present Illness Narrative History of Present Illness (Text): 12/29/17 17:57 22-year-old female presents today with abdominal pain around the umbilicus that started this morning. Patient states there is no nausea vomiting or diarrhea. She denies chest pain or shortness of breath. She denies vaginal bleeding or vaginal discharge. pt denies back pain. She denies any urinary symptoms. Patient states the last time she had this pain they told her it was a ruptured cyst. Patient states that time before when she had this exact same pain they told her she had an appendicitis that was treated only with antibiotics. Patient denies . States her last menstrual period was on December 04 and she is due to get her period Any day. no medications have been taken at home for pain. no other complaints. Time/Duration: Other (this morning) Symptom Onset: Sudden Symptom Course: Unchanged Quality: Aching, Dullness Severity Level: Mild Past Medical History - Provider Review Nursing Documentation Reviewed: Yes - Travel History Have you recently traveled outside [place] w/in the past 3 mons?: No - Infectious Disease Hx of Infectious Diseases: None - Tetanus Immunization Tetanus Immunization: Unknown - Past Medical History Past Medical History: No Previous - Musculoskeletal/Rheumatological Hx Musculoskeletal Disorders: Yes (scoliosis) Hx Falls: No Other/Comment: Scoliosis - Psychiatric Hx Substance Use: No - Past Surgical History Past Surgical History: No Previous - Surgical History Other/Comment: adenoids removed when pt was in 7th grade - Anesthesia Hx Anesthesia: Yes Hx Anesthesia Reactions: No Hx Malignant Hyperthermia: No - Suicidal Assessment Feels Threatened In Home Enviroment: No Family/Social History - Physician Review Nursing Documentation Reviewed: Yes Family/Social History: Unknown Family HX Smoking Status: Never Smoked Hx Alcohol Use: Yes (social) Frequency of alcohol use: Socially Hx Substance Use: No Hx Substance Use Treatment: No Allergies/Home Meds Allergies/Adverse Reactions: Allergies Penicillins Allergy (Verified 12/13/16 05:07) ANAPHYLAXIS Sulfa (Sulfonamide Antibiotics) Allergy (Verified 12/13/16 05:08) VOMITING Review of Systems - Review of Systems Constitutional: absent: Fatigue, Fevers Respiratory: absent: SOB, Cough Cardiovascular: absent: Chest Pain, Palpitations Gastrointestinal: Abdominal Pain. absent: Constipation, Diarrhea, Nausea, Vomiting Genitourinary Female: absent: Dysuria, Frequency, Hematuria, Vaginal Bleeding, Vaginal Discharge Musculoskeletal: absent: Arthralgias, Back Pain, Neck Pain Skin: absent: Rash, Pruritis Neurological: absent: Headache, Dizziness Psychiatric: absent: Anxiety, Depression Physical Exam Vital Signs Reviewed: Yes Vital Signs Temp Pulse Resp BP Pulse Ox 12/29/17 13:39 62 18 128/83 100 12/29/17 12:57 98.1 F 60 18 132/95 H 99 Temperature: Afebrile Blood Pressure: Hypertensive Pulse: Regular Respiratory Rate: Normal Appearance: Positive for: Well-Appearing, Non-Toxic, Comfortable Pain Distress: None Mental Status: Positive for: Alert and Oriented X 3 - Systems Exam Head: Present: Atraumatic Mouth: Present: Moist Mucous Membranes Neck: Present: Normal Range of Motion Respiratory/Chest: Present: Clear to Auscultation Cardiovascular: Present: Regular Rate and Rhythm, Normal S1, S2. No: Murmurs Abdomen: Present: Tenderness (minimal periumbilical abdominal tenderness). No: Distention, Peritoneal Signs, Rebound, Guarding Back: Present: Normal Inspection. No: CVA Tenderness, Midline Tenderness, Paraspinal Tenderness Upper Extremity: Present: Normal ROM Lower Extremity: Present: Normal ROM Neurological: Present: GCS=15, Speech Normal Skin: Present: Warm, Dry, Normal Color. No: Rashes Psychiatric: Present: Alert, Oriented x 3 Medical Decision Making ED Course and Treatment: 12/29/17 17:59 Patient is nontoxic well appearing with stable vital signs presenting with abdominal pain CBC: wnl CMP: wnl Lipase: wnl Urinalysis wnl CAT scan: FINDINGS: LOWER THORAX: No visible consolidation, pleural effusion, or pneumothorax. LIVER: Several too small to characterize hepatic hypodensities at the hepatic dome which are too small to characterize ; statistically likely cyst or hemangiomas. GALLBLADDER AND BILE DUCTS: Unremarkable. PANCREAS: Unremarkable. SPLEEN: Unremarkable. ADRENALS: Unremarkable. KIDNEYS AND URETERS: The kidneys enhance symmetrically. No hydronephrosis or obstructing calculus identified. VASCULATURE: No aortic aneurysm. BOWEL: Stomach is nondistended. Lack of oral contrast limits evaluation for bowel pathology. Bowel loops appear within normal limits of caliber without evidence of obstruction. APPENDIX: Limited visualization of the presumed appendix appears within normal limits of caliber. No secondary signs of acute appendicitis. PERITONEUM: No significant free fluid. No definite free air. LYMPH NODES: No bulky adenopathy identified. BLADDER: Unremarkable. REPRODUCTIVE: The uterus is present. Bilateral cystic lesions within the pelvis superior to reflect ovarian cysts. BONES: No acute osseous abnormality is detected. OTHER FINDINGS: None. IMPRESSION: Several too small to characterize hepatic hypodensities at the hepatic dome which are too small to characterize ; statistically likely cyst or hemangiomas. Bilateral cystic lesions within the pelvis superior to reflect ovarian cysts. Recommend further evaluation with pelvic ultrasound. Ultrasound: FINDINGS: Uterus/cervix: Uterus is anteflexed. Uterus measures 5.6 x 3.7 x 4 cm. Endometrium measures approximately 1.8 mm. Right ovary: Right ovary measures approximately 3.4 x 2.9 x 2.6 cm. There is a 3 x 2 cm hemorrhagic right ovarian cyst. There are multiple adjacent follicles. There is expected blood flow on Doppler imaging Left ovary: Left ovary measures approximately 3 x 2.2 x 3 cm. There are multiple follicles. There is a 0.9 x 1 x 0.9 cm echogenic nodule in the left ovary.There is expected blood flow on Doppler imaging.There is expected blood flow on Doppler imaging Free fluid: There is a small amount of free fluid in the pelvis. Bladder: Bladder is almost empty. IMPRESSION: Hemorrhagic right ovarian cyst; small solid nodule within the left ovary perhaps collapsed cyst; small amount of free fluid in the cul-de-sac, physiologic versus recent cyst rupture; no torsion Patient reassessment:pt is non toxic well appearing; no distress. stable vitals. Discussed all results with patient in depth. Advised follow-up with her flex o writer operator in the primary care physician within the next 2 days. Advised immediate return if symptoms worsen persist or if new concerning symptoms develop. Advised Tylenol every 4 hours as needed for pain advised patient of ovarian cyst and need for follow-up with the flex o writer operator. Patient verbalizes understanding of discharge instructions and need for immediate followup. all aspects of this case were discussed the attending of record. Impression: Abdominal pain, ovarian cyst Tylenol every 4 hours as needed for pain Follow-up with the flex o writer operator within the next 2 days regarding your ovarian cyst Follow up with primary care physician within the next 2 days Return immediately if symptoms worsen persist or if new symptoms develop: High fevers, increasing pain, vomiting, diarrhea or any other concerning symptoms develop 12/29/17 20:36 - Lab Interpretations Lab Results: 12/29/17 14:25 12/29/17 14:25 Lab Results 12/29/17 15:10: Urine Color Yellow, Urine Appearance Clear, Urine pH 7.5, Ur Specific [place] 1.020, Urine Protein Negative, Urine Glucose (UA) Negative, Urine Ketones Negative, Urine Blood Negative, Urine Nitrate Negative, Urine Bilirubin Negative, Urine Urobilinogen 0.2, Ur Leukocyte Esterase Negative 12/29/17 14:25: WBC 6.9, RBC 3.93, Hgb 11.9 L, Hct 37.1, MCV 94.4, MCH 30.3, MCHC 32.1, RDW 11.9, Plt Count 218, MPV 11.5 H, Gran % 60.6, Lymph % (Auto) 32.7 , [place] % (Auto) 4.6, Eos % (Auto) 1.7, Baso % (Auto) 0.4, Gran # 4.18, Lymph # ( Auto) 2.3, [place] # (Auto) 0.3, Eos # (Auto) 0.1, Baso # (Auto) 0.03 12/29/17 14:25: Sodium 142, Potassium 3.7, Chloride 104, Carbon Dioxide 25, Anion Gap 17, BUN 9, Creatinine 0.6 L, Est GFR ( Amer) > 60, Est GFR (Non -Af Amer) > 60, Random Glucose 85, Calcium 9.1, Total Bilirubin 0.4, AST 30, ALT 40, Alkaline Phosphatase 65, Total Protein 7.2, Albumin 4.0, Globulin 3.2, Albumin/Globulin Ratio 1.3, Lipase 39 - RAD Interpretation Radiology Orders: 12/29/17 14:46 ABD & PELVIS IV CONTRAST ONLY [CT] Stat 12/29/17 18:01 TRANSVAGINAL [US] Stat - Medication Orders Current Medication Orders: Discontinued Medications Sodium Chloride (Sodium Chloride 0.9%) 1,000 mls @ 999 mls/hr IV .Q1H1M STA Stop: 12/29/17 15:21 Last Admin: 12/29/17 14:24 Dose: 999 mls/hr eMAR Start Stop Document 12/29/17 14:24 EQ (Rec: 12/29/17 14:24 EQ [id number]) Intravenous Solution Start Date 12/29/17 Start Time 14:24 Ketorolac Tromethamine (Toradol) 30 mg IVP STAT STA Stop: 12/29/17 16:54 Last Admin: 12/29/17 17:08 Dose: 30 mg MAR Pain Assessment Document 12/29/17 17:08 EQ (Rec: 12/29/17 17:08 EQ [id number]) Pain Reassessment Is this a pain reassessment? No Sleep Is patient sleeping during reassessment? No Presence of Pain Presence of Pain Yes IVP Administration Document 12/29/17 17:08 EQ (Rec: 12/29/17 17:08 EQ [id number]) Charges for Administration # of IVP Administrations 1 Disposition/Present on Arrival - Present on Arrival Any Indicators Present on Arrival: No History of DVT/PE: No History of Uncontrolled Diabetes: No Urinary Catheter: No History of Decub. Ulcer: No History Surgical Site Infection Following: None - Disposition Have Diagnosis and Disposition been Completed?: Yes Diagnosis: Abdominal pain, Ovarian cyst Disposition: HOME/ ROUTINE Disposition Time: 20:27 Patient Plan: Discharge Patient Problems: Current Active Problems Problem Status Onset Abdominal pain Acute Ovarian cyst Acute Condition: GOOD Discharge Instructions (ExitCare): Ovarian Cysts, Acute Abdomen (Belly Pain) Additional Instructions: Tylenol every 4 hours as needed for pain Follow-up with the flex o writer operator within the next 2 days regarding your ovarian cyst Follow up with primary care physician within the next 2 days Return immediately if symptoms worsen persist or if new symptoms develop: High fevers, increasing pain, vomiting, diarrhea or any other concerning symptoms develop Referrals: [facility] [Outside] - Follow up with primary Kristan García MD [Staff Provider] - Follow up with primary Carol Keane MD [Medical Doctor] - [facility] with [facility] [[facility]] - Follow up with primary Forms: [facility] ([place]ian), WORK NOTE, SCHOOL NOTE
--- NOTE | 2017-12-29 20:12 | US ---
EXAM: US Pelvis Complete, Transabdominal US Pelvis, Transvaginal US Duplex Arterial/Venous of the Pelvis, Complete EXAM DATE/TIME: 12/29/2017 6:01 PM CLINICAL HISTORY: 22 years old, female; Pain; Pelvic pain TECHNIQUE: Real-time transabdominal and transvaginal pelvic ultrasound (complete) with image documentation. Transvaginal imaging was used for better evaluation of the endometrium and adnexa. Real-time duplex ultrasound scan of the arterial and venous flow of the pelvis with color Doppler flow and spectral waveform analysis. COMPARISON: CT - ABD PELVIS IV CONTRAST ONLY 12/29/2017 5:18 PM FINDINGS: Uterus/cervix: Uterus is anteflexed. Uterus measures 5.6 x 3.7 x 4 cm. Endometrium measures approximately 1.8 mm. Right ovary: Right ovary measures approximately 3.4 x 2.9 x 2.6 cm. There is a 3 x 2 cm hemorrhagic right ovarian cyst. There are multiple adjacent follicles. There is expected blood flow on Doppler imaging Left ovary: Left ovary measures approximately 3 x 2.2 x 3 cm. There are multiple follicles. There is a 0.9 x 1 x 0.9 cm echogenic nodule in the left ovary.There is expected blood flow on Doppler imaging.There is expected blood flow on Doppler imaging Free fluid: There is a small amount of free fluid in the pelvis. Bladder: Bladder is almost empty. IMPRESSION: Hemorrhagic right ovarian cyst; small solid nodule within the left ovary perhaps collapsed cyst; small amount of free fluid in the cul-de-sac, physiologic versus recent cyst rupture; no torsion
[2017-12-29 21:00] VITALS: BP 120/72; PULSE 60
== END 2017-12-29 20:59 | disposition home or self-care (01) ==
LOC: ED 12:46
DX: R10.9 Unspecified abdominal pain (principal); N83.201 Unspecified ovarian cyst, right side; N83.202 Unspecified ovarian cyst, left side
CPT/HCPCS: 74177; 76830; 80053; 81003; 83690; 85025; 96374; 99283; J1885; J7030; Q9967

== ENCOUNTER 2018-07-08 16:56 | Emergency (ER) | payer BC ==
[2018-07-08 16:57] VITALS: BMI 22.4
[2018-07-08 17:19] VITALS: RESP 18
[2018-07-08] MEDS ORDERED: Sodium Chloride 0.9% 1,000 ML IV STA (17:52)
[2018-07-08 18:08] LABS: URINE BILIRUBIN NEGATIVE (NEGATIVE); URINE BLOOD NEGATIVE (NEGATIVE); URINE GLUCOSE (UA) NEGATIVE (NEGATIVE); URINE LEUKOCYTE ESTERASE NEGATIVE Leu/uL (NEGATIVE); URINE PROTEIN NEGATIVE mg/dL (<30 mg/dL); URINE UROBILINOGEN 0.2 E.U./dL (<1 E.U./dL)
[2018-07-08 18:15] LABS: URINE APPEARANCE CLEAR (CLEAR); URINE COLOR YELLOW (YELLOW)
--- NOTE | 2018-07-08 18:31 | ED PDOC ---
Arrival/HPI - General Historian: Patient - History of Present Illness Narrative History of Present Illness (Text): 07/08/18 18:17 23 y/o female with PMH of ovarian cysts presents to the ED c/o lower abdominal pain x 5 hours. Pt woke up at 1pm today and approx 30 minutes later developed suprapubic abdominal pain that she describes as sharp. Took 500mg naproxen approx 3 hours ago with mild relief. Pt is sexually active and monogamous with one partner. Pt last saw her line operator 1 month ago for a routine check-up and was negative for STI. LMP 06/20/18. Denies fever, chills, nausea, vomiting, diarrhea, dysuria, hematuria, urinary frequency, back pain, neck pain/stiffness, vaginal bleeding/discharge/odor, or any other associated symptoms. <Thao Chaudhary - Last Filed: 07/08/18 22:42> <Roshan Dyer - Last Filed: 07/09/18 07:15> - General Chief Complaint: Abdominal Pain Time Seen by Provider: 07/08/18 16:57 Past Medical History - Provider Review Nursing Documentation Reviewed: Yes - Infectious Disease Hx of Infectious Diseases: None - Tetanus Immunization Tetanus Immunization: Unknown - Reproductive Menopause: No - Past Medical History Past Medical History: No Previous - Musculoskeletal/Rheumatological Hx Musculoskeletal Disorders: Yes (scoliosis) Hx Falls: No Other/Comment: Scoliosis - Genitourinary/Gynecological Other/Comment: ovarian cyst - Psychiatric Hx Psychophysiologic Disorder: No Hx Anxiety: No Hx Substance Use: No - Past Surgical History Past Surgical History: No Previous - Surgical History Other/Comment: adenoids removed when pt was in 7th grade - Anesthesia Hx Anesthesia: Yes Hx Anesthesia Reactions: No Hx Malignant Hyperthermia: No - Suicidal Assessment Feels Threatened In Home Enviroment: No <Thao Chaudhary - Last Filed: 07/08/18 22:42> Family/Social History - Physician Review Nursing Documentation Reviewed: Yes Family/Social History: No Known Family HX Smoking Status: Never Smoked Hx Alcohol Use: Yes (social) Hx Substance Use: No Hx Substance Use Treatment: No <Thao Chaudhary - Last Filed: 07/08/18 22:42> Allergies/Home Meds <Thao Chaudhary - Last Filed: 07/08/18 22:42> <Roshan Dyer - Last Filed: 07/09/18 07:15> Allergies/Adverse Reactions: Allergies Penicillins Allergy (Verified 12/13/16 05:07) ANAPHYLAXIS Sulfa (Sulfonamide Antibiotics) Allergy (Verified 12/13/16 05:08) VOMITING Home Medications: Home Meds Medication Instructions Recorded Confirmed L. Acidophilus/Pectin, [place] 1 07/08/18 [Acidophilus Probiotic Capsule] Review of Systems - Review of Systems Constitutional: Normal. absent: Fevers Eyes: Normal. absent: Vision Changes ENT: Normal. absent: Sore Throat Respiratory: Normal. absent: SOB, Cough Cardiovascular: Normal. absent: Chest Pain, Palpitations, Syncope Gastrointestinal: Abdominal Pain. absent: Stool Changes, Nausea, Vomiting, Appetite Changes Genitourinary Female: Normal. absent: Dysuria, Frequency, Hematuria, Vaginal Bleeding, Vaginal Discharge Musculoskeletal: Normal. absent: Arthralgias, Back Pain, Neck Pain Skin: Normal. absent: Rash Neurological: Normal. absent: Headache, Dizziness Endocrine: Normal Hemo/Lymphatic: Normal Psychiatric: Normal <Thao Chaudhary - Last Filed: 07/08/18 22:42> Physical Exam Vital Signs Reviewed: Yes Vital Signs Temp Pulse Resp BP Pulse Ox 07/08/18 17:15 98.4 F 81 18 126/81 98 Temperature: Afebrile Blood Pressure: Normal Pulse: Regular Respiratory Rate: Normal Appearance: Positive for: Well-Appearing, Non-Toxic, Comfortable Pain Distress: None Mental Status: Positive for: Alert and Oriented X 3 - Systems Exam Head: Present: Atraumatic, Normocephalic Pupils: Present: PERRL Extroacular Muscles: Present: EOMI Conjunctiva: Present: Normal Mouth: Present: Moist Mucous Membranes Neck: Present: Normal Range of Motion. No: Meningeal Signs Respiratory/Chest: Present: Clear to Auscultation, Good Air Exchange. No: Res piratory Distress, Accessory Muscle Use Cardiovascular: Present: Regular Rate and Rhythm, Normal S1, S2, Peripheal Pulses Present Abdomen: Present: Normal Bowel Sounds. No: Tenderness, Distention, Peritoneal Signs, Rebound, Guarding Back: Present: Normal Inspection. No: CVA Tenderness, Paraspinal Tenderness Upper Extremity: Present: Normal Inspection, Normal ROM, NORMAL PULSES, Neurovascularly Intact, Capillary Refill < 2s. No: Cyanosis, Edema, Temperature Abnormalties Lower Extremity: Present: Normal Inspection, Normal ROM Neurological: Present: GCS=15, CN II-XII Intact, Speech Normal, Motor Func Grossly Intact, Normal Sensory Function, Gait Normal Skin: Present: Warm, Dry, Normal Color. No: Rashes Psychiatric: Present: Alert, Oriented x 3, Normal Insight, Normal Concentration, Normal Affect, Normal Mood <Thao Chaudhary - Last Filed: 07/08/18 22:42> Vital Signs Temp Pulse Resp BP Pulse Ox 07/08/18 19:11 98 F 75 18 119/53 L 99 07/08/18 17:15 98.4 F 81 18 126/81 98 07/08/18 16:57 75 17 99 <Roshan Dyer - Last Filed: 07/09/18 07:15> Medical Decision Making ED Course and Treatment: Initial Plan: * CBC, CMP * Lipase * Coags * UA, culture * Transvaginal Ultrasound * IVF * Pepcid * Tylenol * Reassess and Disposition Bloodwork reviewed, unremarkable UA unremarkable Transvaginal ultrasound significant for complex right ovarian cyst; advised PMD and gynecological followup, will give prescription for pain medication Pt reports improvement in symptoms with medication. Refusing empiric treatment for GC/Chlamydia, states she will return for treatment if results are positive. Diagnostic testing results and plan of care discussed with patient. Strict instructions given regarding prescription use, importance of followup, and sign s/symptoms to return to ER including worsening pain, fever, chills, SOB, chest pain, or any other new/worsening symptoms. Pt verbalized understanding of discussion. Patient is A&Ox3, ambulating with steady gait, with vital signs stable for discharge. - Lab Interpretations Lab Results: Urine Color Yellow (YELLOW) 07/08/18 17:30 Urine Appearance Clear (CLEAR) 07/08/18 17:30 Urine pH 6.0 (4.7-8.0) 07/08/18 17:30 Ur Specific [place] >= 1.030 (1.005-1.035) 07/08/18 17:30 Urine Protein Negative mg/dL (<30 mg/dL) 07/08/18 17:30 Urine Glucose (UA) Negative mg/dL (NEGATIVE) 07/08/18 17:30 Urine Ketones Trace mg/dL (NEGATIVE) H 07/08/18 17:30 Urine Blood Negative (NEGATIVE) 07/08/18 17:30 Urine Nitrate Negative (NEGATIVE) 07/08/18 17:30 Urine Bilirubin Negative (NEGATIVE) 07/08/18 17:30 Urine Urobilinogen 0.2 E.U./dL (<1 E.U./dL) 07/08/18 17:30 Ur Leukocyte Esterase Negative Ronnie/uL (NEGATIVE) 07/08/18 17:30 Urine HCG, Qual Negative (NEGATIVE) 07/08/18 17:30 Urine HCG, Qual Negative (NEGATIVE) 07/08/18 17:30 07/08/18 18:15 07/08/18 18:15 Lab Results 07/08/18 18:15: Sodium 140, Potassium 4.0, Chloride 101, Carbon Dioxide 28, Anion Gap 15, BUN 10, Creatinine 0.6 L, Est GFR ( Amer) > 60, Est GFR (Non-Af Amer) > 60, Random Glucose 72, Calcium 9.8, Magnesium 1.9, Total Bilirubin 0.3, AST 30, ALT 28, Alkaline Phosphatase 63, Total Protein 8.0, Albumin 4.1, Globulin 3.9, Albumin/Globulin Ratio 1.1, Lipase 48 07/08/18 18:15: PT 11.3, INR 1.02, APTT 30.5 07/08/18 18:15: WBC 6.6, RBC 4.13, Hgb 12.7, Hct 39.4, MCV 95.4, MCH 30.8, MCHC 32.2, RDW 12.2, Plt Count 252, MPV 11.9 H, Neut % (Auto) 56.2, Lymph % (Auto) 33.6, [place] % (Auto) 6.7 H, Eos % (Auto) 2.9, Baso % (Auto) 0.6, Lymph # (Auto) 2.2, [place] # (Auto) 0.4, Eos # (Auto) 0.2, Baso # (Auto) 0.04, Absolute Neuts (auto) 3.72 07/08/18 17:30: Urine HCG, Qual Negative 07/08/18 17:30: Urine Color Yellow, Urine Appearance Clear, Urine pH 6.0, Ur Specific [place] >= 1.030, Urine Protein Negative, Urine Glucose (UA) Negative, Urine Ketones Trace H, Urine Blood Negative, Urine Nitrate Negative, Urine Bilirubin Negative, Urine Urobilinogen 0.2, Ur Leukocyte Esterase Negative I have reviewed the lab results: Yes - RAD Interpretation Narrative RAD Interpretations (Text): 07/08/18 19:20 Transvaginal Ultrasound: FINDINGS: ENDOMETRIUM: Normal thickness. UTERUS/CERVIX: The uterus appears within normal limits. No uterine fibroid or other mass ev ident. RIGHT OVARY: Normal Doppler flow. There is a complex cystic mass right ovary measuring sobia roximately 1.8 x 1.3 x 1.9 cm. LEFT OVARY: Normal Doppler flow. No abnormal mass. FREE FLUID: No free fluid. IMPRESSION: No suspicious uterine mass. Complex cystic mass right ovary measuring 1.8 x 1.3 x 1.9 cm. Clinical correlation and short interval follow-up study recommended. Radiology Orders: 07/08/18 17:54 TRANSVAGINAL [US] Stat Log Cut Off Sawyer: Radiologist - Medication Orders Current Medication Orders: Sodium Chloride (Sodium Chloride 0.9%) 1,000 mls @ 1,000 mls/hr IV .Q1H STA Stop: 07/08/18 18:51 Discontinued Medications Acetaminophen (Tylenol 325mg Tab) 975 mg PO STAT STA Stop: 07/08/18 17:53 Famotidine (Pepcid) 20 mg IVP STAT STA Stop: 07/08/18 17:53 <Thao Chaudhary - Last Filed: 07/08/18 22:42> - Lab Interpretations Lab Results: PT 11.3 SECONDS (9.4-12.5) 07/08/18 18:15 INR 1.02 07/08/18 18:15 APTT 30.5 Seconds (26.9-38.3) 07/08/18 18:15 Total Bilirubin 0.3 mg/dL (0.2-1.3) 07/08/18 18:15 AST 30 U/L (14-36) 07/08/18 18:15 ALT 28 U/L (7-56) 07/08/18 18:15 Alkaline Phosphatase 63 U/L (38-126) 07/08/18 18:15 Total Protein 8.0 g/dL (5.8-8.3) 07/08/18 18:15 Albumin 4.1 g/dL (3.0-4.8) 07/08/18 18:15 Globulin 3.9 gm/dL 07/08/18 18:15 Albumin/Globulin Ratio 1.1 (1.1-1.8) 07/08/18 18:15 Lipase 48 U/L (23-300) 07/08/18 18:15 Urine Color Yellow (YELLOW) 07/08/18 17:30 Urine Appearance Clear (CLEAR) 07/08/18 17:30 Urine pH 6.0 (4.7-8.0) 07/08/18 17:30 Ur Specific [place] >= 1.030 (1.005-1.035) 07/08/18 17:30 Urine Protein Negative mg/dL (<30 mg/dL) 07/08/18 17:30 Urine Glucose (UA) Negative mg/dL (NEGATIVE) 07/08/18 17:30 Urine Ketones Trace mg/dL (NEGATIVE) H 07/08/18 17:30 Urine Blood Negative (NEGATIVE) 07/08/18 17:30 Urine Nitrate Negative (NEGATIVE) 07/08/18 17:30 Urine Bilirubin Negative (NEGATIVE) 07/08/18 17:30 Urine Urobilinogen 0.2 E.U./dL (<1 E.U./dL) 07/08/18 17:30 Ur Leukocyte Esterase Negative Ronnie/uL (NEGATIVE) 07/08/18 17:30 Urine HCG, Qual Negative (NEGATIVE) 07/08/18 17:30 Urine HCG, Qual Negative (NEGATIVE) 07/08/18 17:30 - RAD Interpretation Radiology Orders: 07/08/18 17:54 TRANSVAGINAL [US] Stat - Medication Orders Current Medication Orders: Discontinued Medications Acetaminophen (Tylenol 325mg Tab) 975 mg PO STAT STA Stop: 07/08/18 17:53 Last Admin: 07/08/18 18:31 Dose: 975 mg MAR Pain/Vitals Document 07/08/18 18:31 GMI (Rec: 07/08/18 18:31 [id number] Pain Reassessment Is This A Pain ReAssessment? Yes Sleep Is patient sleeping during reassessment? No Famotidine (Pepcid) 20 mg IVP STAT STA Stop: 07/08/18 17:53 Last Admin: 07/08/18 18:32 Dose: 20 mg IVP Administration Document 07/08/18 18:32 GMI (Rec: 07/08/18 18:32 [id number] Charges for Administration # of IVP Administrations 1 Sodium Chloride (Sodium Chloride 0.9%) 1,000 mls @ 1,000 mls/hr IV .Q1H STA Stop: 07/08/18 18:51 Last Admin: 07/08/18 18:25 Dose: 1,000 mls/hr eMAR Start Stop Document 07/08/18 18:25 GMI (Rec: 07/08/18 18:26 [id number] Intravenous Solution Start Date 07/08/18 Start Time 18:26 End Date 07/08/18 End time 19:30 Total Infusion Time 64 <Roshan Dyer - Last Filed: 07/09/18 07:15> - PA / [employer] / Resident Statement / has reviewed & agrees with the documentation as recorded. <Roshan Dyer - Last Filed: 07/09/18 07:15> Disposition/Present on Arrival - Present on Arrival Any Indicators Present on Arrival: No History of DVT/PE: No History of Uncontrolled Diabetes: No Urinary Catheter: No History of Decub. Ulcer: No History Surgical Site Infection Following: None - Disposition Have Diagnosis and Disposition been Completed?: Yes Disposition Time: 19:40 Patient Plan: Discharge <Thao Chaudhary - Last Filed: 07/08/18 22:42> <Roshan Dyer - Last Filed: 07/09/18 07:15> - Disposition Diagnosis: Ovarian cyst Disposition: HOME/ ROUTINE Condition: GOOD Discharge Instructions (ExitCare): Ovarian Cysts Additional Instructions: Ibuprofen every 8 hours as needed for pain Increase fluids Rest, no strenuous activity Followup with primary doctor within 2 days Followup with gynecology within 2 days Return to ER with any new/worsening symptoms Prescriptions: Ibuprofen [Motrin Tab] 600 mg PO Q8 #30 tab Referrals: [facility] [place] - Follow up with primary Lakhwinder Montero [Medical Doctor] - Follow up with primary Carol Keane MD [Medical Doctor] - Follow up with primary Forms: [employer] Connect (Faroese), WORK NOTE
[2018-07-08 18:46] LABS: ALB/GLOB RATIO 1.1 (1.1-1.8); ALBUMIN 4.1 g/dL (3.0-4.8); ALT/SGPT 28 U/L (7-56); AST/SGOT 30 U/L (14-36); BLOOD UREA NITROGEN 10 mg/dL (7-21); CALCIUM 9.8 mg/dL (8.4-10.5); GFR NON-AFRICAN AMERICAN > 60; LIPASE 48 U/L (23-300)
[2018-07-08 18:51] LABS: BASO # 0.04 K/mm3 (0.0-2.0); BASO % 0.6 % (0.0-3.0); EOS # 0.2 (0.0-0.7); EOS % 2.9 % (1.5-5.0); HEMOGLOBIN 12.7 g/dL (12.0-16.0); LYMPH # 2.2 (1.2-3.4); LYMPH % 33.6 % (22.0-35.0); MEAN CELL VOLUME 95.4 fl (80.0-105.0); MEAN CORPUSCULAR HEMOGLOBIN 30.8 pg (25.0-35.0); MEAN CORPUSCULAR HGB CONC 32.2 g/dl (31.0-37.0); MEAN PLATELET VOLUME 11.9 fl (7.0-11.0); MONO # 0.4 (0.1-0.6); MONO % 6.7 % (1.0-6.0); RBC 4.13 10^6/uL (3.5-6.1); RED CELL DISTRIBUTION WIDTH 12.2 % (11.5-14.5); WHITE BLOOD COUNT 6.6 10^3/uL (4.5-11.0)
[2018-07-08 18:56] LABS: INR 1.02; PARTIAL THROMBOPLASTIN TIME 30.5 Seconds (26.9-38.3); PROTHROMBIN TIME 11.3 SECONDS (9.4-12.5)
[2018-07-08 19:12] VITALS: BP 119/53; PULSE 75; TEMP 98; O2SAT 99
--- NOTE | 2018-07-09 11:41 | US ---
Date of service: 07/08/2018 HISTORY: Vaginal bleeding, lower abdominal pain, h/o cysts COMPARISON: Comparison made with prior study dated 12/29/2017. TECHNIQUE: Transabdominal/transvaginal sonographic evaluation pelvis performed. FINDINGS: UTERUS: Measures 6.5 x 3.7 x 5.0 cm. Anteverted. Normal in size and appearance. No fibroid or other mass lesion seen. ENDOMETRIUM: Measures 7.7 mm in diameter. Unremarkable. CERVIX: No cervical abnormality identified. Cervix measures 3.4 cm RIGHT OVARY: Measures 3.2 x 2.7 x 2.6 cm. No solid mass. Normal flow.. Small complex cyst measuring 1.8 x 1.3 x 1.9 cm present. LEFT OVARY: Measures 2.9 x 2.4 x 2.5 cm. No solid mass. Normal flow. FREE FLUID: No significant free fluid noted. OTHER FINDINGS: None. IMPRESSION: Complex right ovarian cyst.. Repeat ultrasound during the next menstrual cycle shortly following cessation of menses could be performed to assess for resolution.
== END 2018-07-08 20:06 | disposition home or self-care (01) ==
LOC: ED 16:56
DX: N83.201 Unspecified ovarian cyst, right side (principal)
CPT/HCPCS: 76830; 80053; 81003; 81025; 83690; 83735; 84703; 85025; 85610; 85730; 87086; 87491; 87591; 96361; 96374; 99284; J7030